=== PATIENT | male | born 1955 | race Two or more races ===

== ENCOUNTER 2023-08-18 15:59 | Inpatient (IN) | payer MEDICARE ==
[~2023-08-18] VITALS: Ht 165.1 cm; Wt 68.3 kg
[2023-08-18 18:39] LABS: BASOPHILS % (AUTO) 0.8 % (0.0-2.0); EOSINOPHILS % (AUTO) 2.8 % (1.0-6.0); HEMATOCRIT 39.8 % (41-53); HEMOGLOBIN 13.4 g/dL (13.5-17.5); MEAN CORPUSCULAR HEMOGLOBIN 31.9 pg (26.0-34.0); MEAN CORPUSCULAR HGB CONC 33.6 G/dL (31.0-37.0); MEAN CORPUSCULAR VOLUME 95 fL (80-100); MONOCYTES # (AUTO) 0.7 K/uL (0.1-1.0); MONOCYTES % (AUTO) 7.4 % (2.0-9.0); NEUTROPHILS # (AUTO) 6.2 K/uL (1.8-7.7); PLATELET COUNT (AUTO) 405 K/uL (150-450); RED CELL DISTRIBUTION WIDTH 14.3 % (11.5-14.5); WHITE BLOOD COUNT (AUTO) 9.3 K/uL (4.5-11.0)
[2023-08-18 18:53] LABS: TROPONIN I-HIGH SENSITIVITY 6 ng/L (<76)
[2023-08-18 18:58] LABS: ALCOHOL, BLOOD (SERUM) < 3 mg/dL (0-10); ANION GAP 9 mmol/L (8-16); CALCIUM, TOTAL 9.5 mg/dL (8.8-10.5); CARBON DIOXIDE 27 mmol/L (22-29); CHLORIDE 102 mmol/L (98-107); CREATININE 0.77 mg/dL (0.60-1.30); GLOMERULAR FILTR. RATE CALC > 60 mL/min (>60); GLUCOSE,RANDOM 93 mg/dL (70-110); POTASSIUM 4.7 mmol/L (3.5-5.1); SODIUM SERUM 138 mmol/L (136-145); UREA NITROGEN, BLOOD 18 mg/dL (7-18)
[2023-08-18 19:02] LABS: ALANINE AMINOTRANSFERASE 19 U/L (12-78); ALBUMIN 3.9 g/dL (3.4-5.0); ALKALINE PHOSPHATASE 97 U/L (46-116); ASPARTATE AMINOTRANSFERASE 18 U/L (15-37); BILIRUBIN,TOTAL 0.7 mg/dL (0.1-1.0); LIPASE 51 U/L (16-77); TOTAL PROTEIN, SERUM 7.8 g/dL (6.4-8.2)
[2023-08-18] MEDS ORDERED: LORazepam 2 MG TABLET PO ONE (20:30)
[2023-08-18] MEDS ORDERED: HALOPERIDOL 5 MG TABLET PO ONE (20:30)
[2023-08-18] MEDS ORDERED: HALOPERIDOL 5 MG TABLET PO PRN (21:15)
[2023-08-18] MEDS ORDERED: LORazepam 2 MG TABLET PO PRN (21:15)
[2023-08-18 22:10] LABS: COVID AG,FIA SOURCE NASAL SWAB
[2023-08-18 22:37] LABS: SARS-COV2 (COVID) ANTIGEN,FIA Negative (Negative)
[2023-08-19 11:11] VITALS: BP 144/75; PULSE 81; RESP 18; TEMP 97.8; O2SAT 99
[2023-08-19] MEDS ORDERED: PNEUMOCOCCAL VACCINE POLYVALENT 0.5 ML SYRINGE [PPSV23] IM. ONE (11:45)
[2023-08-19] MEDS ORDERED: NICOTINE 14 MG/24 HOUR PATCH TD PRN ×2 (12:00→14:00)
[2023-08-19] MEDS ORDERED: MAGNESIUM HYDROXIDE SUSPENSION 30 ML UDCUP PO PRN (14:00)
[2023-08-19] MEDS ORDERED: LOPERAMIDE HCL 2 MG CAPSULE PO PRN (14:00)
[2023-08-19] MEDS ORDERED: ONDANSETRON HCL 4 MG TABLET PO PRN (14:00)
[2023-08-19] MEDS ORDERED: ACETAMINOPHEN 325 MG TABLET PO PRN (14:00)
[2023-08-19] MEDS ORDERED: ALBUTEROL SULFATE HFA 90 MCG/PUFF 8 GM INHALER IH PRN (14:00)
[2023-08-19] MEDS ORDERED: GuaiFENesin/D-METHORPHAN [SUGAR-FREE] 200-20MG/10 ML SYRUP UDCUP PO PRN (14:00)
[2023-08-19] MEDS ORDERED: CloNIDine HCL 0.1 MG TABLET PO PRN (14:00)
[2023-08-19] MEDS ORDERED: MAG HYDROX/ALUMINUM HYD/SIMETH ES 30 ML SUSPENSION UDCUP PO PRN (14:00)
[2023-08-19] MEDS ORDERED: PETROLATUM,WHITE 28 GM JELLY TP PRN (14:00)
[2023-08-19] MEDS ORDERED: OLAN10TA22 PO (14:58)
[2023-08-19] MEDS: OLANZapine 10 MG TABLET PO SCH (20:26)
[2023-08-19 21:26] VITALS: RESP 18
[2023-08-20 08:15] VITALS: BP 148/70; PULSE 86; RESP 18; TEMP 97.6; O2SAT 96
[2023-08-20 09:15] LABS: HEMOGLOBIN A1C 5.5 % (3.8-5.6)
[2023-08-20 09:35] LABS: THYROID STIMULATING HORMONE 0.2 uIU/mL (0.36-3.74)
[2023-08-20 10:03] LABS: CHOL/HDL RATIO 3.4 (4.2-7.3)
[2023-08-20] MEDS: ZOLPIDEM TARTRATE 10 MG TABLET PO PRN (21:19)
[2023-08-20] MEDS: OLANZapine 10 MG TABLET PO SCH (21:19)
[2023-08-20 22:17] VITALS: TEMP 97
[2023-08-21 08:19] VITALS: BP 127/74; PULSE 78; RESP 17; TEMP 97.7; O2SAT 98
[2023-08-21] MEDS: OLANZapine 10 MG TABLET PO SCH (20:43)
[2023-08-21 21:21] VITALS: RESP 18
[2023-08-22 09:00] VITALS: BP 109/63; PULSE 82; TEMP 97.8
[2023-08-22] MEDS: DOCUSATE SODIUM 100 MG CAPSULE PO PRN (14:54)
[2023-08-22 20:15] VITALS: RESP 18
[2023-08-22] MEDS: OLANZapine 10 MG TABLET PO SCH (21:01)
[2023-08-23 13:28] VITALS: BP 107/66; PULSE 82; RESP 18; O2SAT 96
[2023-08-23] MEDS: OLANZapine 10 MG TABLET PO SCH (20:57)
[2023-08-23 21:39] VITALS: RESP 18
[2023-08-24 07:55] VITALS: BP 111/67; PULSE 68; RESP 17; TEMP 97.6
[2023-08-24] MEDS: IBUPROFEN 400 MG TABLET PO PRN (07:55)
[2023-08-24] MEDS: DOCUSATE SODIUM 100 MG CAPSULE PO PRN (07:57)
[2023-08-24 08:09] VITALS: BP 109/59; PULSE 71; RESP 18; TEMP 97.8; O2SAT 96
[2023-08-24 08:55] VITALS: BP 118/68; PULSE 72; RESP 17; TEMP 97.1
[2023-08-24 20:07] VITALS: BP 120/70; PULSE 75; RESP 18; TEMP 97.8; O2SAT 97
[2023-08-24] MEDS: OLANZapine 10 MG TABLET PO SCH (20:48)
[2023-08-25 08:22] VITALS: BP 115/70; PULSE 78; RESP 16; TEMP 97.9; O2SAT 95
[2023-08-25] MEDS: OLANZapine 10 MG TABLET PO SCH (20:37)
[2023-08-25] MEDS: ZOLPIDEM TARTRATE 10 MG TABLET PO PRN (20:58)
[2023-08-25 21:56] VITALS: BP 103/72; PULSE 93; RESP 17; TEMP 97.7; O2SAT 96
[2023-08-26 08:08] VITALS: BP 128/77; PULSE 91; RESP 18; TEMP 97.3; O2SAT 96
[2023-08-26] MEDS: IBUPROFEN 400 MG TABLET PO PRN (08:08)
[2023-08-26 09:08] VITALS: BP 131/71; PULSE 84; RESP 17; TEMP 97.6
[2023-08-26] MEDS: BISACODYL 10 MG RECTAL RECTAL SUPPOSITORY PR PRN (09:42)
[2023-08-26] MEDS: OLANZapine 10 MG TABLET PO SCH (20:12)
[2023-08-26 20:28] VITALS: RESP 18
[2023-08-27 09:00] VITALS: BP 124/79; PULSE 94; RESP 18; TEMP 97; O2SAT 96
[2023-08-27 20:00] VITALS: BP 97/67; PULSE 89; RESP 20; TEMP 96.7; O2SAT 96
[2023-08-27] MEDS: OLANZapine 10 MG TABLET PO SCH (20:10)
[2023-08-28] MEDS: BISACODYL 10 MG RECTAL RECTAL SUPPOSITORY PR PRN (09:10)
[2023-08-28 12:02] VITALS: RESP 17
[2023-08-28] MEDS: OLANZapine 10 MG TABLET PO SCH (20:14)
[2023-08-28 20:49] VITALS: BP 122/81; PULSE 95; RESP 18; TEMP 98.1
[2023-08-29 08:33] VITALS: BP 102/65; PULSE 75; RESP 18; TEMP 97.6; O2SAT 96
[2023-08-29] MEDS: OLANZapine 10 MG TABLET PO SCH (20:43)
[2023-08-29 22:24] VITALS: RESP 17
[2023-08-30 10:30] VITALS: BP 95/63; PULSE 78; RESP 18; TEMP 98.7; O2SAT 96
[2023-08-30 20:52] VITALS: RESP 18
[2023-08-30] MEDS: OLANZapine 10 MG TABLET PO SCH (21:06)
[2023-08-31] MEDS: ZOLPIDEM TARTRATE 10 MG TABLET PO PRN (00:12)
[2023-08-31 00:13] VITALS: BP 100/60; PULSE 75; RESP 18; TEMP 97.8; O2SAT 98
[2023-08-31] MEDS: IBUPROFEN 400 MG TABLET PO PRN (00:17)
[2023-08-31 08:21] VITALS: BP 123/90; PULSE 69; RESP 18; TEMP 97.4; O2SAT 96
[2023-08-31] MEDS: OLANZapine 10 MG TABLET PO SCH (20:42)
[2023-08-31 20:47] VITALS: BP 104/68; PULSE 83; RESP 18; TEMP 98.1; O2SAT 97
[2023-09-01 09:04] VITALS: BP 101/68; PULSE 80; RESP 18; TEMP 98.2; O2SAT 97
[2023-09-01] MEDS: OLANZapine 5 MG TABLET PO SCH (20:42)
[2023-09-01 21:53] VITALS: RESP 18
[2023-09-02 14:03] VITALS: RESP 18
[2023-09-02] MEDS: OLANZapine 5 MG TABLET PO SCH (20:38)
[2023-09-02 20:54] VITALS: BP 107/68; PULSE 80; RESP 18; TEMP 97.8
[2023-09-03 10:30] VITALS: BP 101/65; PULSE 78; RESP 18; TEMP 98.2
[2023-09-03] MEDS: OLANZapine 5 MG TABLET PO SCH (20:39)
[2023-09-03 21:00] VITALS: BP 115/70; PULSE 90; RESP 18; TEMP 97; O2SAT 97
[2023-09-04 08:22] VITALS: BP 101/55; PULSE 67; RESP 18; TEMP 98.2; O2SAT 97
[2023-09-04 20:13] VITALS: BP 106/67; PULSE 80; RESP 16; TEMP 98.8; O2SAT 96
[2023-09-04] MEDS: OLANZapine 5 MG TABLET PO SCH (20:41)
[2023-09-05 08:06] VITALS: BP 111/73; PULSE 75; RESP 18; TEMP 97.9; O2SAT 97
[2023-09-05 20:11] VITALS: RESP 18
[2023-09-05] MEDS: OLANZapine 5 MG TABLET PO SCH (20:52)
[2023-09-06 09:20] VITALS: BP 125/72; PULSE 91; RESP 18; TEMP 98; O2SAT 98
[2023-09-06 20:19] VITALS: RESP 18
[2023-09-06] MEDS: OLANZapine 5 MG TABLET PO SCH (20:30)
[2023-09-06 20:49] VITALS: BP 110/65; PULSE 83; RESP 18; TEMP 98.7; O2SAT 94
[2023-09-07] MEDS ORDERED: OLAN5TAB52 PO (08:43)
[2023-09-07 08:54] VITALS: BP 116/6; PULSE 72; RESP 18; TEMP 97; O2SAT 95
[2023-09-07 08:55] VITALS: BP 116/67; PULSE 72; RESP 19; TEMP 97.1; O2SAT 95
== END 2023-09-07 16:41 | disposition home or self-care (01) | DRG 885 ==
LOC: EMS 16:01 → 3EC 08-19 10:07
PROVIDERS: ADMIT Psychiatry & Neurology Psychiatry; ATTEND Psychiatry & Neurology Psychiatry
PROC: GZHZZZZ Group Psychotherapy (ICD-10-PCS; principal; 2023-08-19)
PROC: GZ56ZZZ Individual Psychotherapy, Supportive (ICD-10-PCS; 2023-08-19)
DX: F20.0 Paranoid schizophrenia (principal); Z59.00 Homelessness unspecified; G47.00 Insomnia, unspecified; Z20.822 Contact with and (suspected) exposure to COVID-19; R94.6 Abnormal results of thyroid function studies; K59.00 Constipation, unspecified; D64.9 Anemia, unspecified
CPT/HCPCS: 80053; 80061; 83036; 83605; 83690; 84443; 84484; 85025; 99285; G0480